=== PATIENT | female | born 1990 | race Caucasian/White ===

== ENCOUNTER 2021-02-02 09:30 | Emergency (ER) | payer OTHER ==
[2021-02-02 09:43] VITALS: BP 135/81
[2021-02-02 10:50] LABS: Bilirubin,Urine NEG (Negative); Blood,Urine SM (Negative); Color,Urine Amber (Yellow); Mucus,Urine 2+ /HPF
[2021-02-02] MEDS ORDERED: ONDANSETRON 4 MG ODT TAB PO ONE (11:11)
--- NOTE | 2021-02-02 11:17 | Emergency Department Report ---
ED Female HPI - General Chief complaint: Abdominal Pain Stated complaint: POSSIBLE UTI Time Seen by Provider: 02/02/21 10:06 Source: patient Mode of arrival: Ambulatory Limitations: No Limitations - History of Present Illness Initial comments: 30-year-old female presents to the emergency room complaining of urinary frequency urgency dysuria x3 days. Patient reports she has taken AZO's today. Patient reports she is taking Aleve. Patient does report having a history of frequent urinary tract infections about every 3 months. Patient de nies any fever chills does complain of nausea but no vomiting. She is here visiting from [place]. She has an allergy to Reglan and Phenergan but states she can take Zofran. MD Complaint: dysuria, pelvic pain, other (Right flank pain) Onset/Timin -: days(s) Location: suprapubic Radiation: L flank, R flank Severity scale (0 -10): 9 Quality: sharp, stabbing Consistency: constant Improves with: none Worsens with: urination Are you Now?: No - Related Data Previous Rx's Medication Instructions Recorded Last Taken Type Nitrofurantoin Summit/M-Cryst 100 mg PO Q12HR 10 Days #20 capsule 02/02/21 Unknown Rx [Macrobid CAP] Allergies Allergy/AdvReac Type Severity Reaction Status Date / Time metoclopramide [From Reglan] Allergy Rash Verified 02/02/21 09:43 promethazine [From Phenergan] Allergy Rash Verified 02/02/21 09:43 ED Review of Systems ROS: Stated complaint: POSSIBLE UTI Other details as noted in HPI Comment: All other systems reviewed and negative ED Past Medical Hx - Past Medical History Previous Medical History?: Yes Hx Asthma: Yes Additional medical history: gastritis - Surgical History Past Surgical History?: Yes Additional Surgical History: cystoscopy - Medications Home Medications: Home Medications Medication Instructions Recorded Confirmed Last Taken Type Nitrofurantoin [place]/M-Cryst 100 mg PO Q12HR 10 Days #20 capsule 02/02/21 Unknown Rx [Macrobid CAP] ED Physical Exam - General Limitations: No Limitations General appearance: alert, in no apparent distress - Head Head exam: Present: atraumatic, normocephalic - Eye Eye exam: Present: normal appearance - ENT ENT exam: Present: mucous membranes moist - Neck Neck exam: Present: full ROM - Respiratory Respiratory exam: Absent: respiratory distress, accessory muscle use - Cardiovascular Cardiovascular Exam: Present: regular rate - GI/Abdominal GI/Abdominal exam: Present: soft, tenderness, normal bowel sounds. Absent: distended - Extremities Exam Extremities exam: Present: normal inspection - Back Exam Back exam: Present: normal inspection - Neurological Exam Neurological exam: Present: alert, oriented X3, normal gait - Psychiatric Psychiatric exam: Present: normal affect, normal mood - Skin Skin exam: Present: warm, dry, intact, normal color. Absent: rash ED Course Vital Signs 02/02/21 09:40 Temperature 98.5 F Pulse Rate 92 H Respiratory 18 Rate Blood Pressure 135/81 O2 Sat by Pulse 96 Oximetry ED Medical Decision Making - Medical Decision Making 30-year-old female presents to the emergency room complaining of urinary frequency urgency dysuria x3 days. Patient reports she has taken AZO's today. Patient reports she is taking Aleve. Patient does report having a history of frequent urinary tract infections about every 3 months. Patient denies any fever chills does complain of nausea but no vomiting. She is here visiting from [place]. She has an allergy to Reglan and Phenergan but states she can take Zofran. Patient has a urinary tract infection. We will give her Zofran now for the nausea discharged on Macrobid increase your water intake follow-up with her specialist in [place]. Critical care attestation.: If time is entered above; I have spent that time in minutes in the direct care of this critically ill patient, excluding procedure time. ED Disposition Clinical Impression: UTI (urinary tract infection) Disposition: TO HOME OR SELFCARE Is pt being admited?: No Does the pt Need Aspirin: No Condition: Stable Instructions: Abdominal Pain (ED), Urinary Tract Infection, Adult, [id number] Additional Instructions: Complete antibiotics as prescribed. Nausea medicine as needed. Increase your fluid intake advance your diet as tolerated follow-up with your [facility]. Prescriptions: Nitrofurantoin Summit/M-Cryst [Macrobid CAP] 100 mg PO Q12HR 10 Days #20 capsule Referrals: Your, [facility] [Other] - 3-5 Days Time of Disposition: 11:13
== END 2021-02-02 11:55 | disposition home or self-care (01) ==
LOC: ED 09:30
DX: N39.0 Urinary tract infection, site not specified (principal); J45.909 Unspecified asthma, uncomplicated; Z98.890 Other specified postprocedural states; Z79.899 Other long term (current) drug therapy; Z88.8 Allergy status to other drugs, medicaments and biological substances
CPT/HCPCS: 81001; Q0162